=== PATIENT | female | born 1980 | race Caucasian/White ===

== ENCOUNTER 2018-10-07 07:15 | Inpatient (IN) | payer OTHER ==
[~2018-10-07] VITALS: Ht 167.6 cm; Wt 112.9 kg
[2018-10-07] MEDS ORDERED: PRENATAL TABLE1 EAC1 PO (10:19)
== END 2018-10-09 15:25 | disposition home or self-care (01) | DRG 798 ==
LOC: LDR 07:15 → O/R 21:37 → OB/GYN 22:36
PROVIDERS: ADMIT Obstetrics & Gynecology
PROC: 4A1HXCZ Monitoring of Products of Conception, Cardiac Rate, External Approach (ICD-10-PCS; 2018-10-07)
PROC: 0UB70ZZ Excision of Bilateral Fallopian Tubes, Open Approach (ICD-10-PCS; 2018-10-07)
PROC: 10E0XZZ Delivery of Products of Conception, External Approach (ICD-10-PCS; principal; 2018-10-07 19:15)
DX: O80 Encounter for full-term uncomplicated delivery (principal); Z37.0 Single live birth; Z3A.39 39 weeks gestation of pregnancy; Z30.2 Encounter for sterilization